=== PATIENT | male | born 1985 | race Two or more races ===

== ENCOUNTER 2021-07-02 09:36 | Emergency (ER) | payer MEDICAID, OTHER ==
[~2021-07-02] VITALS: Ht 175.3 cm; Wt 83.9 kg
[2021-07-02] MEDS ORDERED: IBUP800T27 PO (13:11)
[2021-07-02 13:38] VITALS: BP 129/86
== END 2021-07-02 13:22 | disposition home or self-care (01) ==
LOC: ER 09:36
DX: G44.209 Tension-type headache, unspecified, not intractable (principal)
CPT/HCPCS: 70450